=== PATIENT | male | born 1955 | race Caucasian/White ===

== ENCOUNTER 2020-07-18 12:48 | Inpatient (IN) ==
[2020-07-18] MEDS: Gabapentin 100 MG CAPSULE PO SCH ×2 (17:13→20:46)
[2020-07-18] MEDS: Nicotine 14 MG PATCH.TD24 TD SCH (17:30)
[2020-07-18] MEDS: Furosemide 40 MG TABLET PO SCH (17:31)
[2020-07-18] MEDS: Lactulose Oral Soln 20 GM/30 ML UDC PO SCH (20:46)
[2020-07-18] MEDS: Ammonium Lactate 30 APPL/225 GM BOTTLE TP SCH (20:46)
[2020-07-18] MEDS: Loratadine 10 MG TABLET PO SCH (20:46)
[2020-07-18] MEDS: Budesonide/Formoterol 160/4.5 1 PUFF INH IH SCH (21:49)
[2020-07-19] MEDS: Finasteride 5 MG TABLET PO SCH (08:14)
[2020-07-19] MEDS: Gabapentin 100 MG CAPSULE PO SCH ×3 (08:14→21:36)
[2020-07-19] MEDS: Ammonium Lactate 30 APPL/225 GM BOTTLE TP SCH ×2 (08:15→21:39)
[2020-07-19] MEDS: calcitrioL 0.25 MCG CAPSULE PO SCH (08:15)
[2020-07-19] MEDS: Lactulose Oral Soln 20 GM/30 ML UDC PO SCH ×3 (08:16→21:36)
[2020-07-19] MEDS: Furosemide 40 MG TABLET PO SCH ×2 (08:30→16:43)
[2020-07-19] MEDS: Dapagliflozin [Farxiga] 5 MG PO SCH (08:31)
[2020-07-19] MEDS ORDERED: Dextrose Gel 15 GM/37.5 ML TUBE PO PRN ×2 (08:31)
[2020-07-19] MEDS ORDERED: D5% in Water 1,000 ML IVC PRN (08:31)
[2020-07-19] MEDS ORDERED: *HR* Dextrose 50 % in Water (Vial) 50 ML VIAL IVP PRN (08:31)
[2020-07-19 08:36] LABS: Basophils # 0.1 K/mcL (0.0-0.2); Basophils % 0.9 %; Eosinophils # 0.4 K/mcL (0.0-0.6); Eosinophils % 4.6 %; Hemoglobin 10.1 g/dL (12.9-16.9); Immature Granulocytes % 0.3 % (0-4); Lymphocytes # 1.9 K/mcL (0.6-4.6); Lymphocytes % 25.3 %; Mean Corpuscular HGB Conc 31.6 g/dL (31.6-35.5); Mean Corpuscular Hemoglobin 29.3 pg (28.0-33.3); Mean Corpuscular Volume 92.8 fL (83.0-100.0); Mean Platelet Volume 11.7 fL (9.4-12.4); Monocytes # 0.7 K/mcL (0.0-1.3); Monocytes % 9.8 %; Neutrophils # 4.5 K/mcL (1.6-8.9); Red Blood Count 3.45 M/mcL (4.19-5.50); Red Cell Distribution Width 21.5 % (11.5-14.5); Segmented Neutrophils % 59.1 %; White Blood Count 7.6 K/mcL (4.3-11.1)
[2020-07-19 08:37] LABS: Platelet Count 77 K/mcL (140-400)
[2020-07-19 08:43] LABS: BUN/Creatinine Ratio 18 (6-26); Blood Urea Nitrogen 25 mg/dL (8-23); Calcium 8.9 mg/dL (8.6-10.3); Carbon Dioxide 26 mEq/L (23-29); Chloride 102 mEq/L (98-107); Glucose 108 mg/dL (70-105); Osmolality,Calculated 287 (280-300); Potassium 3.7 mEq/L (3.5-5.1); Sodium 136 mEq/L (136-145); eGFR For African Americans > 60 (> 60); eGFR For Non-African Americans 53 (> 60)
[2020-07-19] MEDS ORDERED: Cyanocobalamin (B-12) 1,000 MCG/ML VIAL IM SCH (09:00)
[2020-07-19 09:27] LABS: Platelet Estimate Decreased (Normal)
[2020-07-19] MEDS ORDERED: Tiotropium 10 INH DOSE IH SCH (10:00)
[2020-07-19] MEDS: *HR* Heparin 5,000 UNIT/ML VIAL SQ SCH ×2 (10:34→17:04)
[2020-07-19] MEDS: Nicotine 14 MG PATCH.TD24 TD SCH (10:39)
[2020-07-19] MEDS: Budesonide/Formoterol 160/4.5 1 PUFF INH IH SCH ×2 (10:42→21:30)
[2020-07-19] MEDS: Tiotropium 10 INH DOSE IH SCH (10:54)
[2020-07-19] MEDS: Insulin LISPRO 300 UNITS/3 ML VIAL SUBQ SCH ×2 (11:42→16:43)
[2020-07-19] MEDS: Loratadine 10 MG TABLET PO SCH (21:36)
[2020-07-20] MEDS: *HR* Heparin 5,000 UNIT/ML VIAL SQ SCH ×2 (05:41→16:50)
[2020-07-20] MEDS: Insulin LISPRO 300 UNITS/3 ML VIAL SUBQ SCH ×4 (07:25→22:19)
[2020-07-20] MEDS: Lactulose Oral Soln 20 GM/30 ML UDC PO SCH ×3 (08:45→22:19)
[2020-07-20] MEDS: Dapagliflozin [Farxiga] 5 MG PO SCH (08:46)
[2020-07-20] MEDS: Finasteride 5 MG TABLET PO SCH (08:46)
[2020-07-20] MEDS: Gabapentin 100 MG CAPSULE PO SCH ×3 (08:46→22:19)
[2020-07-20] MEDS: Ammonium Lactate 30 APPL/225 GM BOTTLE TP SCH ×2 (08:46→22:21)
[2020-07-20] MEDS: Furosemide 40 MG TABLET PO SCH ×2 (08:46→16:50)
[2020-07-20] MEDS: Nicotine 14 MG PATCH.TD24 TD SCH (08:46)
[2020-07-20] MEDS: Tiotropium 10 INH DOSE IH SCH (09:03)
[2020-07-20] MEDS: Budesonide/Formoterol 160/4.5 1 PUFF INH IH SCH ×2 (09:04→21:48)
[2020-07-20] MEDS ORDERED: Ergocalciferol (VIT D2) 50,000 UNIT (1.25MG) CAP PO SCH ×2 (14:26→14:45)
[2020-07-20] MEDS: Loratadine 10 MG TABLET PO SCH (22:18)
[2020-07-21] MEDS: *HR* Heparin 5,000 UNIT/ML VIAL SQ SCH ×2 (05:38→16:32)
[2020-07-21] MEDS: Insulin LISPRO 300 UNITS/3 ML VIAL SUBQ SCH ×4 (07:06→22:08)
[2020-07-21] MEDS: Budesonide/Formoterol 160/4.5 1 PUFF INH IH SCH ×2 (08:00→21:29)
[2020-07-21] MEDS: Tiotropium 10 INH DOSE IH SCH (08:01)
[2020-07-21] MEDS: Nicotine 14 MG PATCH.TD24 TD SCH (09:19)
[2020-07-21] MEDS: Lactulose Oral Soln 20 GM/30 ML UDC PO SCH ×3 (09:19→22:09)
[2020-07-21] MEDS: Finasteride 5 MG TABLET PO SCH (09:19)
[2020-07-21] MEDS: *HR* Metformin 500 MG TABLET PO SCH ×2 (09:20→16:33)
[2020-07-21] MEDS: calcitrioL 0.25 MCG CAPSULE PO SCH (09:20)
[2020-07-21] MEDS: Gabapentin 100 MG CAPSULE PO SCH ×3 (09:21→22:08)
[2020-07-21] MEDS: Furosemide 40 MG TABLET PO SCH ×2 (09:21→16:33)
[2020-07-21] MEDS: Ammonium Lactate 30 APPL/225 GM BOTTLE TP SCH ×2 (09:22→22:08)
[2020-07-21] MEDS: Dapagliflozin [Farxiga] 5 MG PO SCH (09:22)
[2020-07-21] MEDS: Loratadine 10 MG TABLET PO SCH (22:08)
[2020-07-22] MEDS: *HR* Heparin 5,000 UNIT/ML VIAL SQ SCH (05:07)
[2020-07-22 05:11] VITALS: BP 111/64
[2020-07-22] MEDS: Insulin LISPRO 300 UNITS/3 ML VIAL SUBQ SCH (07:49)
[2020-07-22] MEDS: Budesonide/Formoterol 160/4.5 1 PUFF INH IH SCH (09:19)
[2020-07-22] MEDS: Tiotropium 10 INH DOSE IH SCH (09:19)
[2020-07-22] MEDS: Furosemide 40 MG TABLET PO SCH (09:34)
[2020-07-22] MEDS: Finasteride 5 MG TABLET PO SCH (09:34)
[2020-07-22] MEDS: Gabapentin 100 MG CAPSULE PO SCH (09:34)
[2020-07-22] MEDS: *HR* Metformin 500 MG TABLET PO SCH (09:34)
[2020-07-22] MEDS: Nicotine 14 MG PATCH.TD24 TD SCH (09:35)
[2020-07-22] MEDS: Lactulose Oral Soln 20 GM/30 ML UDC PO SCH (09:35)
[2020-07-22] MEDS: Ammonium Lactate 30 APPL/225 GM BOTTLE TP SCH (09:36)
[2020-07-22] MEDS: Dapagliflozin [Farxiga] 5 MG PO SCH (09:36)
== END 2020-07-22 12:10 | disposition home health service (06) | DRG 442 ==
LOC: INPPIK 16:20
PROVIDERS: ADMIT Family Medicine; ATTEND Family Medicine

== ENCOUNTER 2020-10-29 10:48 | Inpatient (IN) ==
[2020-10-29] MEDS ORDERED: Gabapentin 100 MG CAPSULE PO SCH (15:00)
[2020-10-29] MEDS: *HR* Metformin 500 MG TABLET PO SCH (19:03)
[2020-10-29] MEDS: Lactulose Oral Soln 20 GM/30 ML UDC PO SCH (21:10)
[2020-10-29] MEDS: Gabapentin 100 MG CAPSULE PO SCH (21:10)
[2020-10-29] MEDS: Loratadine 10 MG TABLET PO SCH (21:11)
[2020-10-29] MEDS: Ammonium Lactate 30 APPL/225 GM BOTTLE TP SCH (21:12)
[2020-10-29] MEDS: Budesonide/Formoterol 160/4.5 1 PUFF INH IH SCH (21:43)
[2020-10-30 07:31] LABS: Basophils % 0.2 %; Eosinophils % 0.4 %; Hematocrit 25.6 % (37.5-50.1); Hemoglobin 7.9 g/dL (12.9-16.9); Immature Granulocytes % 0.6 % (0-4); Lymphocytes # 1.5 K/mcL (0.6-4.6); Lymphocytes % 14.2 %; Mean Corpuscular HGB Conc 30.9 g/dL (31.6-35.5); Mean Corpuscular Hemoglobin 30.3 pg (28.0-33.3); Mean Corpuscular Volume 98.1 fL (83.0-100.0); Mean Platelet Volume 13.1 fL (9.4-12.4); Monocytes # 0.9 K/mcL (0.0-1.3); Monocytes % 8.2 %; Neutrophils # 8.1 K/mcL (1.6-8.9); Red Blood Count 2.61 M/mcL (4.19-5.50); Red Cell Distribution Width 17.8 % (11.5-14.5); Segmented Neutrophils % 76.4 %; White Blood Count 10.6 K/mcL (4.3-11.1)
[2020-10-30 07:44] LABS: Platelet Count 56 K/mcL (140-400)
[2020-10-30 07:46] LABS: Calcium 9.4 mg/dL (8.6-10.3); Potassium 4.3 mEq/L (3.5-5.1)
[2020-10-30] MEDS: Azithromycin 250 MG TABLET PO SCH (08:23)
[2020-10-30] MEDS: *HR* Metformin 500 MG TABLET PO SCH (08:23)
[2020-10-30] MEDS: Lactulose Oral Soln 20 GM/30 ML UDC PO SCH ×3 (08:23→20:31)
[2020-10-30] MEDS: Finasteride 5 MG TABLET PO SCH (08:24)
[2020-10-30] MEDS: Multivit/Ca/Min/Fe/FA 1 TAB TABLET PO SCH (08:24)
[2020-10-30] MEDS: Spironolactone 25 MG TABLET PO SCH (08:24)
[2020-10-30] MEDS: NIFEdipine XL (24 HR) 30 MG TAB.ER.24 PO SCH (08:25)
[2020-10-30] MEDS: Furosemide 40 MG TABLET PO SCH (08:25)
[2020-10-30] MEDS: Gabapentin 100 MG CAPSULE PO SCH ×3 (08:25→20:31)
[2020-10-30] MEDS: Ammonium Lactate 30 APPL/225 GM BOTTLE TP SCH ×2 (08:26→20:32)
[2020-10-30] MEDS: Calcifediol [Rayaldee] 30 MCG Cap.Sa.24h PO SCH (08:27)
[2020-10-30] MEDS: FLUOROURACIL TP SCH (08:27)
[2020-10-30] MEDS: Nicotine 14 MG PATCH.TD24 TD SCH (08:27)
[2020-10-30] MEDS ORDERED: predniSONE 20 MG TABLET PO SCH (09:00)
[2020-10-30] MEDS ORDERED: Cyanocobalamin (B-12) 1,000 MCG/ML VIAL SQ SCH (09:00)
[2020-10-30] MEDS ORDERED: NON-FORMULARY MEDICATION 1 EACH EACH (Fluticasone/Umeclidin/Vilanter [Trelegy Ellipta 100- IH SCH (09:00)
[2020-10-30] MEDS: Tiotropium 10 INH DOSE IH SCH (10:35)
[2020-10-30] MEDS: Budesonide/Formoterol 160/4.5 1 PUFF INH IH SCH ×2 (10:36→21:31)
[2020-10-30] MEDS ORDERED: *HR* Dextrose 50 % in Water (Vial) 50 ML VIAL IVP PRN (10:39)
[2020-10-30] MEDS ORDERED: D5% in Water 1,000 ML IVC PRN (10:39)
[2020-10-30] MEDS ORDERED: Dextrose Gel 15 GM/37.5 ML TUBE PO PRN ×2 (10:39)
[2020-10-30] MEDS ORDERED: Ipratropium/Albuterol Neb 3 ML IH PRN (10:43)
[2020-10-30 12:40] LABS: INR 1.5; Prothrombin Time 17.4 Seconds (9.4-12.1)
[2020-10-30] MEDS: Insulin LISPRO 300 UNITS/3 ML VIAL SUBQ SCH ×3 (16:32→20:31)
[2020-10-30] MEDS: Loratadine 10 MG TABLET PO SCH (20:31)
[2020-10-31 06:43] LABS: Basophils % 0.2 %; Eosinophils % 0.4 %; Hematocrit 24.9 % (37.5-50.1); Hemoglobin 7.9 g/dL (12.9-16.9); Immature Granulocytes % 0.4 % (0-4); Lymphocytes # 1.4 K/mcL (0.6-4.6); Lymphocytes % 16.1 %; Mean Corpuscular HGB Conc 31.7 g/dL (31.6-35.5); Mean Corpuscular Hemoglobin 31.2 pg (28.0-33.3); Mean Corpuscular Volume 98.4 fL (83.0-100.0); Mean Platelet Volume 11.8 fL (9.4-12.4); Monocytes # 0.8 K/mcL (0.0-1.3); Monocytes % 8.5 %; Neutrophils # 6.6 K/mcL (1.6-8.9); Red Blood Count 2.53 M/mcL (4.19-5.50); Red Cell Distribution Width 18.2 % (11.5-14.5); Segmented Neutrophils % 74.4 %; White Blood Count 8.9 K/mcL (4.3-11.1)
[2020-10-31 06:45] LABS: Platelet Count 50 K/mcL (140-400)
[2020-10-31 07:10] LABS: INR 1.5; Prothrombin Time 17.6 Seconds (9.4-12.1)
[2020-10-31 07:22] LABS: Calcium 9.2 mg/dL (8.6-10.3); Potassium 4.1 mEq/L (3.5-5.1)
[2020-10-31] MEDS: Multivit/Ca/Min/Fe/FA 1 TAB TABLET PO SCH (08:32)
[2020-10-31] MEDS: Azithromycin 250 MG TABLET PO SCH (08:32)
[2020-10-31] MEDS: Lactulose Oral Soln 20 GM/30 ML UDC PO SCH ×3 (08:32→20:15)
[2020-10-31] MEDS: Insulin LISPRO 300 UNITS/3 ML VIAL SUBQ SCH ×4 (08:32→20:42)
[2020-10-31] MEDS: Furosemide 40 MG TABLET PO SCH (08:33)
[2020-10-31] MEDS: Finasteride 5 MG TABLET PO SCH (08:33)
[2020-10-31] MEDS: Gabapentin 100 MG CAPSULE PO SCH ×3 (08:33→20:15)
[2020-10-31] MEDS: NIFEdipine XL (24 HR) 30 MG TAB.ER.24 PO SCH (08:33)
[2020-10-31] MEDS: Nicotine 14 MG PATCH.TD24 TD SCH (08:34)
[2020-10-31] MEDS: Spironolactone 25 MG TABLET PO SCH (08:34)
[2020-10-31] MEDS: Calcifediol [Rayaldee] 30 MCG Cap.Sa.24h PO SCH (08:35)
[2020-10-31] MEDS: Ammonium Lactate 30 APPL/225 GM BOTTLE TP SCH ×2 (08:35→20:18)
[2020-10-31] MEDS: FLUOROURACIL TP SCH (08:36)
[2020-10-31] MEDS: Tiotropium 10 INH DOSE IH SCH (09:40)
[2020-10-31] MEDS: Budesonide/Formoterol 160/4.5 1 PUFF INH IH SCH ×2 (09:40→21:39)
[2020-10-31] MEDS: Ipratropium/Albuterol Neb 3 ML IH SCH ×2 (15:08→21:38)
[2020-10-31] MEDS: Loratadine 10 MG TABLET PO SCH (20:15)
[2020-11-01] MEDS: Ipratropium/Albuterol Neb 3 ML IH SCH ×4 (04:00→21:03)
[2020-11-01] MEDS: Insulin LISPRO 300 UNITS/3 ML VIAL SUBQ SCH ×4 (08:01→21:49)
[2020-11-01] MEDS: Lactulose Oral Soln 20 GM/30 ML UDC PO SCH ×3 (08:09→20:16)
[2020-11-01] MEDS: NIFEdipine XL (24 HR) 30 MG TAB.ER.24 PO SCH (08:10)
[2020-11-01] MEDS: Azithromycin 250 MG TABLET PO SCH (08:10)
[2020-11-01] MEDS: Finasteride 5 MG TABLET PO SCH (08:10)
[2020-11-01] MEDS: Gabapentin 100 MG CAPSULE PO SCH ×3 (08:10→20:17)
[2020-11-01] MEDS: Multivit/Ca/Min/Fe/FA 1 TAB TABLET PO SCH (08:11)
[2020-11-01] MEDS: Nicotine 14 MG PATCH.TD24 TD SCH (08:11)
[2020-11-01] MEDS: Furosemide 40 MG TABLET PO SCH (08:11)
[2020-11-01] MEDS: Ammonium Lactate 30 APPL/225 GM BOTTLE TP SCH ×2 (08:17→20:18)
[2020-11-01] MEDS: FLUOROURACIL TP SCH (08:18)
[2020-11-01] MEDS: Budesonide/Formoterol 160/4.5 1 PUFF INH IH SCH ×2 (09:59→21:03)
[2020-11-01] MEDS: Tiotropium 10 INH DOSE IH SCH (10:00)
[2020-11-01 13:27] LABS: Calcium 9.6 mg/dL (8.6-10.3); Potassium 4.2 mEq/L (3.5-5.1)
[2020-11-01] MEDS: Loratadine 10 MG TABLET PO SCH (20:16)
[2020-11-01] MEDS: CALCIFEDIOL 30 MCG PO SCH (21:49)
[2020-11-02] MEDS: Ipratropium/Albuterol Neb 3 ML IH SCH ×4 (04:23→21:58)
[2020-11-02] MEDS: Insulin LISPRO 300 UNITS/3 ML VIAL SUBQ SCH ×4 (07:51→21:29)
[2020-11-02 08:30] LABS: Basophils # 0.1 K/mcL (0.0-0.2); Basophils % 0.7 %; Eosinophils # 0.4 K/mcL (0.0-0.6); Eosinophils % 5.7 %; Hematocrit 26.6 % (37.5-50.1); Hemoglobin 8.3 g/dL (12.9-16.9); Immature Granulocytes % 0.4 % (0-4); Lymphocytes # 1.5 K/mcL (0.6-4.6); Lymphocytes % 20.2 %; Mean Corpuscular HGB Conc 31.2 g/dL (31.6-35.5); Mean Corpuscular Hemoglobin 31.1 pg (28.0-33.3); Mean Corpuscular Volume 99.6 fL (83.0-100.0); Mean Platelet Volume 11.4 fL (9.4-12.4); Monocytes # 0.7 K/mcL (0.0-1.3); Monocytes % 8.8 %; Neutrophils # 4.9 K/mcL (1.6-8.9); Red Blood Count 2.67 M/mcL (4.19-5.50); Red Cell Distribution Width 18.7 % (11.5-14.5); Segmented Neutrophils % 64.2 %; White Blood Count 7.6 K/mcL (4.3-11.1)
[2020-11-02 08:32] LABS: Platelet Count 49 K/mcL (140-400)
[2020-11-02] MEDS: Lactulose Oral Soln 20 GM/30 ML UDC PO SCH ×3 (08:46→21:34)
[2020-11-02] MEDS: Multivit/Ca/Min/Fe/FA 1 TAB TABLET PO SCH (08:46)
[2020-11-02] MEDS: Azithromycin 250 MG TABLET PO SCH (08:46)
[2020-11-02] MEDS: Gabapentin 100 MG CAPSULE PO SCH ×3 (08:46→21:35)
[2020-11-02] MEDS: Furosemide 40 MG TABLET PO SCH (08:47)
[2020-11-02] MEDS: NIFEdipine XL (24 HR) 30 MG TAB.ER.24 PO SCH (08:47)
[2020-11-02] MEDS: Finasteride 5 MG TABLET PO SCH (08:47)
[2020-11-02] MEDS: Dulaglutide [Trulicity] 1.5 MG/0.5 ML Pen.Injctr SQ SCH (08:48)
[2020-11-02] MEDS: Nicotine 14 MG PATCH.TD24 TD SCH (08:48)
[2020-11-02] MEDS: Ammonium Lactate 30 APPL/225 GM BOTTLE TP SCH ×2 (08:48→21:35)
[2020-11-02 08:52] LABS: Calcium 9.4 mg/dL (8.6-10.3); Potassium 3.9 mEq/L (3.5-5.1)
[2020-11-02 09:36] LABS: Platelet Estimate Marked Decrease (Normal)
[2020-11-02] MEDS: Budesonide/Formoterol 160/4.5 1 PUFF INH IH SCH ×2 (11:22→21:58)
[2020-11-02] MEDS: Tiotropium 10 INH DOSE IH SCH (11:22)
[2020-11-02] MEDS: Loratadine 10 MG TABLET PO SCH (21:35)
[2020-11-02] MEDS: CALCIFEDIOL 30 MCG PO SCH (21:36)
[2020-11-03] MEDS: Ipratropium/Albuterol Neb 3 ML IH SCH ×2 (05:29→10:19)
[2020-11-03] MEDS: Insulin LISPRO 300 UNITS/3 ML VIAL SUBQ SCH ×4 (07:59→21:05)
[2020-11-03] MEDS: NIFEdipine XL (24 HR) 30 MG TAB.ER.24 PO SCH (08:56)
[2020-11-03] MEDS: Finasteride 5 MG TABLET PO SCH (08:56)
[2020-11-03] MEDS: Gabapentin 100 MG CAPSULE PO SCH ×3 (08:56→21:45)
[2020-11-03] MEDS: Furosemide 40 MG TABLET PO SCH (08:56)
[2020-11-03] MEDS: Multivit/Ca/Min/Fe/FA 1 TAB TABLET PO SCH (08:56)
[2020-11-03] MEDS: Azithromycin 250 MG TABLET PO SCH (08:56)
[2020-11-03] MEDS: Lactulose Oral Soln 20 GM/30 ML UDC PO SCH ×3 (08:56→21:48)
[2020-11-03] MEDS: Nicotine 14 MG PATCH.TD24 TD SCH (08:57)
[2020-11-03] MEDS: Ammonium Lactate 30 APPL/225 GM BOTTLE TP SCH ×2 (08:57→22:06)
[2020-11-03] MEDS: Tiotropium 10 INH DOSE IH SCH (10:21)
[2020-11-03] MEDS: Budesonide/Formoterol 160/4.5 1 PUFF INH IH SCH ×2 (10:24→21:16)
[2020-11-03 10:32] LABS: Calcium 9.4 mg/dL (8.6-10.3); Potassium 4.2 mEq/L (3.5-5.1)
[2020-11-03] MEDS ORDERED: Ipratropium/Albuterol Neb 3 ML IH PRN (11:22)
[2020-11-03] MEDS: Loratadine 10 MG TABLET PO SCH (21:45)
[2020-11-03] MEDS: CALCIFEDIOL 30 MCG PO SCH (21:47)
[2020-11-04] MEDS: Tiotropium 10 INH DOSE IH SCH (07:47)
[2020-11-04] MEDS: Budesonide/Formoterol 160/4.5 1 PUFF INH IH SCH ×2 (07:47→20:20)
[2020-11-04] MEDS: Insulin LISPRO 300 UNITS/3 ML VIAL SUBQ SCH ×4 (08:24→21:11)
[2020-11-04] MEDS: Azithromycin 250 MG TABLET PO SCH (08:30)
[2020-11-04] MEDS: Spironolactone 25 MG TABLET PO SCH (08:30)
[2020-11-04] MEDS: Multivit/Ca/Min/Fe/FA 1 TAB TABLET PO SCH (08:30)
[2020-11-04] MEDS: Gabapentin 100 MG CAPSULE PO SCH ×3 (08:31→21:10)
[2020-11-04] MEDS: Nicotine 14 MG PATCH.TD24 TD SCH (08:31)
[2020-11-04] MEDS: Lactulose Oral Soln 20 GM/30 ML UDC PO SCH ×3 (08:31→21:10)
[2020-11-04] MEDS: NIFEdipine XL (24 HR) 30 MG TAB.ER.24 PO SCH (08:31)
[2020-11-04] MEDS: Finasteride 5 MG TABLET PO SCH (08:31)
[2020-11-04] MEDS: Furosemide 40 MG TABLET PO SCH (08:31)
[2020-11-04] MEDS: Ammonium Lactate 30 APPL/225 GM BOTTLE TP SCH ×2 (08:35→21:11)
[2020-11-04] MEDS: Loratadine 10 MG TABLET PO SCH (21:10)
[2020-11-04] MEDS: CALCIFEDIOL 30 MCG PO SCH (22:59)
[2020-11-05] MEDS: Budesonide/Formoterol 160/4.5 1 PUFF INH IH SCH ×2 (07:36→21:41)
[2020-11-05] MEDS: Tiotropium 10 INH DOSE IH SCH (07:36)
[2020-11-05] MEDS: Azithromycin 250 MG TABLET PO SCH (08:28)
[2020-11-05] MEDS: Finasteride 5 MG TABLET PO SCH (08:28)
[2020-11-05] MEDS: Lactulose Oral Soln 20 GM/30 ML UDC PO SCH ×3 (08:28→20:08)
[2020-11-05] MEDS: NIFEdipine XL (24 HR) 30 MG TAB.ER.24 PO SCH (08:28)
[2020-11-05] MEDS: Nicotine 14 MG PATCH.TD24 TD SCH (08:29)
[2020-11-05] MEDS: Furosemide 40 MG TABLET PO SCH (08:29)
[2020-11-05] MEDS: Insulin LISPRO 300 UNITS/3 ML VIAL SUBQ SCH ×4 (08:30→19:32)
[2020-11-05] MEDS: Gabapentin 100 MG CAPSULE PO SCH ×3 (08:30→20:08)
[2020-11-05] MEDS: Multivit/Ca/Min/Fe/FA 1 TAB TABLET PO SCH (08:30)
[2020-11-05] MEDS: Spironolactone 25 MG TABLET PO SCH (08:30)
[2020-11-05] MEDS: Ammonium Lactate 30 APPL/225 GM BOTTLE TP SCH ×2 (11:59→20:07)
[2020-11-05] MEDS: CALCIFEDIOL 30 MCG PO SCH (20:08)
[2020-11-05] MEDS: Loratadine 10 MG TABLET PO SCH (20:08)
[2020-11-06] MEDS: Budesonide/Formoterol 160/4.5 1 PUFF INH IH SCH ×2 (07:51→21:18)
[2020-11-06] MEDS: Tiotropium 10 INH DOSE IH SCH (07:51)
[2020-11-06 08:01] LABS: Basophils # 0.1 K/mcL (0.0-0.2); Basophils % 0.8 %; Eosinophils # 0.3 K/mcL (0.0-0.6); Hematocrit 27.2 % (37.5-50.1); Hemoglobin 8.2 g/dL (12.9-16.9); Immature Granulocytes % 0.3 % (0-4); Lymphocytes # 1.6 K/mcL (0.6-4.6); Lymphocytes % 24.2 %; Mean Corpuscular HGB Conc 30.1 g/dL (31.6-35.5); Mean Corpuscular Hemoglobin 30.7 pg (28.0-33.3); Mean Corpuscular Volume 101.9 fL (83.0-100.0); Mean Platelet Volume 12.8 fL (9.4-12.4); Monocytes # 0.8 K/mcL (0.0-1.3); Monocytes % 11.7 %; Neutrophils # 3.9 K/mcL (1.6-8.9); Red Blood Count 2.67 M/mcL (4.19-5.50); Red Cell Distribution Width 18.6 % (11.5-14.5); White Blood Count 6.7 K/mcL (4.3-11.1)
[2020-11-06] MEDS: Insulin LISPRO 300 UNITS/3 ML VIAL SUBQ SCH ×4 (08:07→20:33)
[2020-11-06] MEDS: Azithromycin 250 MG TABLET PO SCH (08:07)
[2020-11-06] MEDS: Lactulose Oral Soln 20 GM/30 ML UDC PO SCH ×3 (08:07→20:33)
[2020-11-06] MEDS: Gabapentin 100 MG CAPSULE PO SCH ×3 (08:07→20:33)
[2020-11-06] MEDS: Finasteride 5 MG TABLET PO SCH (08:08)
[2020-11-06] MEDS: Spironolactone 25 MG TABLET PO SCH (08:08)
[2020-11-06] MEDS: Multivit/Ca/Min/Fe/FA 1 TAB TABLET PO SCH (08:08)
[2020-11-06] MEDS: Nicotine 14 MG PATCH.TD24 TD SCH (08:08)
[2020-11-06] MEDS: Furosemide 40 MG TABLET PO SCH (08:08)
[2020-11-06] MEDS: NIFEdipine XL (24 HR) 30 MG TAB.ER.24 PO SCH (08:08)
[2020-11-06] MEDS: Ammonium Lactate 30 APPL/225 GM BOTTLE TP SCH ×2 (08:09→20:32)
[2020-11-06 08:12] LABS: Calcium 9.2 mg/dL (8.6-10.3); Potassium 4.2 mEq/L (3.5-5.1)
[2020-11-06 08:13] LABS: Platelet Count 51 K/mcL (140-400)
[2020-11-06] MEDS: Loratadine 10 MG TABLET PO SCH (20:33)
[2020-11-06] MEDS: CALCIFEDIOL 30 MCG PO SCH (20:36)
[2020-11-07] MEDS: NIFEdipine XL (24 HR) 30 MG TAB.ER.24 PO SCH (08:22)
[2020-11-07] MEDS: Multivit/Ca/Min/Fe/FA 1 TAB TABLET PO SCH (08:23)
[2020-11-07] MEDS: Furosemide 40 MG TABLET PO SCH (08:23)
[2020-11-07] MEDS: Azithromycin 250 MG TABLET PO SCH (08:23)
[2020-11-07] MEDS: Spironolactone 25 MG TABLET PO SCH (08:23)
[2020-11-07] MEDS: Finasteride 5 MG TABLET PO SCH (08:23)
[2020-11-07] MEDS: Gabapentin 100 MG CAPSULE PO SCH ×3 (08:23→20:53)
[2020-11-07] MEDS: Lactulose Oral Soln 20 GM/30 ML UDC PO SCH ×3 (08:25→20:53)
[2020-11-07] MEDS: Nicotine 14 MG PATCH.TD24 TD SCH (08:25)
[2020-11-07] MEDS: Insulin LISPRO 300 UNITS/3 ML VIAL SUBQ SCH ×4 (08:32→20:50)
[2020-11-07] MEDS: Ammonium Lactate 30 APPL/225 GM BOTTLE TP SCH ×2 (08:33→20:56)
[2020-11-07] MEDS: Budesonide/Formoterol 160/4.5 1 PUFF INH IH SCH ×2 (11:02→21:37)
[2020-11-07] MEDS: Tiotropium 10 INH DOSE IH SCH (11:03)
[2020-11-07] MEDS: CALCIFEDIOL 30 MCG PO SCH (20:51)
[2020-11-07] MEDS: Loratadine 10 MG TABLET PO SCH (20:53)
[2020-11-07] MEDS: Ipratropium/Albuterol Neb 3 ML IH PRN (21:38)
[2020-11-08] MEDS: Insulin LISPRO 300 UNITS/3 ML VIAL SUBQ SCH ×4 (08:39→21:37)
[2020-11-08 08:59] LABS: Basophils % 0.7 %; Eosinophils # 0.3 K/mcL (0.0-0.6); Eosinophils % 4.7 %; Hematocrit 25.9 % (37.5-50.1); Hemoglobin 7.9 g/dL (12.9-16.9); Immature Granulocytes % 0.2 % (0-4); Lymphocytes # 1.3 K/mcL (0.6-4.6); Lymphocytes % 21.9 %; Mean Corpuscular HGB Conc 30.5 g/dL (31.6-35.5); Mean Corpuscular Hemoglobin 30.6 pg (28.0-33.3); Mean Corpuscular Volume 100.4 fL (83.0-100.0); Mean Platelet Volume 12.5 fL (9.4-12.4); Monocytes # 0.7 K/mcL (0.0-1.3); Monocytes % 11.6 %; Neutrophils # 3.5 K/mcL (1.6-8.9); Red Blood Count 2.58 M/mcL (4.19-5.50); Red Cell Distribution Width 18.6 % (11.5-14.5); Segmented Neutrophils % 60.9 %; White Blood Count 5.7 K/mcL (4.3-11.1)
[2020-11-08 09:01] LABS: Platelet Count 49 K/mcL (140-400)
[2020-11-08 09:11] LABS: Albumin 3.5 g/dL (3.5-5.7); Albumin/Globulin Ratio 1.1 (1.1-2.2); Calcium 8.9 mg/dL (8.6-10.3); Globulin 3.3 g/dL (2.4-3.5); Potassium 4.3 mEq/L (3.5-5.1); Total Protein 6.8 g/dL (6.4-8.9)
[2020-11-08] MEDS: Azithromycin 250 MG TABLET PO SCH (09:22)
[2020-11-08] MEDS: Spironolactone 25 MG TABLET PO SCH (09:24)
[2020-11-08] MEDS: Multivit/Ca/Min/Fe/FA 1 TAB TABLET PO SCH (09:24)
[2020-11-08] MEDS: Finasteride 5 MG TABLET PO SCH (09:25)
[2020-11-08] MEDS: Furosemide 40 MG TABLET PO SCH (09:25)
[2020-11-08] MEDS: Gabapentin 100 MG CAPSULE PO SCH ×3 (09:25→21:36)
[2020-11-08] MEDS: NIFEdipine XL (24 HR) 30 MG TAB.ER.24 PO SCH (09:25)
[2020-11-08] MEDS: Lactulose Oral Soln 20 GM/30 ML UDC PO SCH ×3 (09:26→21:36)
[2020-11-08] MEDS: Nicotine 14 MG PATCH.TD24 TD SCH (09:30)
[2020-11-08] MEDS: Ammonium Lactate 30 APPL/225 GM BOTTLE TP SCH ×2 (09:39→21:35)
[2020-11-08] MEDS: Tiotropium 10 INH DOSE IH SCH (09:44)
[2020-11-08] MEDS: Budesonide/Formoterol 160/4.5 1 PUFF INH IH SCH ×2 (09:44→21:11)
[2020-11-08] MEDS: Ipratropium/Albuterol Neb 3 ML IH PRN ×2 (09:44→21:12)
[2020-11-08] MEDS: Loratadine 10 MG TABLET PO SCH (21:36)
[2020-11-08] MEDS: CALCIFEDIOL 30 MCG PO SCH (21:37)
[2020-11-09] MEDS: Insulin LISPRO 300 UNITS/3 ML VIAL SUBQ SCH ×4 (07:27→20:42)
[2020-11-09] MEDS: Tiotropium 10 INH DOSE IH SCH (08:53)
[2020-11-09] MEDS: Budesonide/Formoterol 160/4.5 1 PUFF INH IH SCH ×2 (08:53→21:25)
[2020-11-09] MEDS: Lactulose Oral Soln 20 GM/30 ML UDC PO SCH ×3 (08:58→20:30)
[2020-11-09] MEDS: Nicotine 14 MG PATCH.TD24 TD SCH (08:58)
[2020-11-09] MEDS: NIFEdipine XL (24 HR) 30 MG TAB.ER.24 PO SCH (08:59)
[2020-11-09] MEDS: Finasteride 5 MG TABLET PO SCH (08:59)
[2020-11-09] MEDS: Gabapentin 100 MG CAPSULE PO SCH ×3 (08:59→20:30)
[2020-11-09] MEDS: Multivit/Ca/Min/Fe/FA 1 TAB TABLET PO SCH (09:00)
[2020-11-09] MEDS: Spironolactone 25 MG TABLET PO SCH (09:00)
[2020-11-09] MEDS: Azithromycin 250 MG TABLET PO SCH (09:00)
[2020-11-09] MEDS: Furosemide 40 MG TABLET PO SCH (09:00)
[2020-11-09] MEDS: Dulaglutide [Trulicity] 1.5 MG/0.5 ML Pen.Injctr SQ SCH (09:01)
[2020-11-09] MEDS: Ammonium Lactate 30 APPL/225 GM BOTTLE TP SCH ×2 (11:47→20:29)
[2020-11-09] MEDS: Loratadine 10 MG TABLET PO SCH (20:30)
[2020-11-09] MEDS: CALCIFEDIOL 30 MCG PO SCH (20:31)
[2020-11-09] MEDS: Ipratropium/Albuterol Neb 3 ML IH PRN (21:25)
[2020-11-10] MEDS: Insulin LISPRO 300 UNITS/3 ML VIAL SUBQ SCH ×4 (07:16→20:36)
[2020-11-10] MEDS: Spironolactone 25 MG TABLET PO SCH (09:13)
[2020-11-10] MEDS: Azithromycin 250 MG TABLET PO SCH (09:14)
[2020-11-10] MEDS: Multivit/Ca/Min/Fe/FA 1 TAB TABLET PO SCH (09:15)
[2020-11-10] MEDS: Finasteride 5 MG TABLET PO SCH (09:15)
[2020-11-10] MEDS: Furosemide 40 MG TABLET PO SCH (09:15)
[2020-11-10] MEDS: Gabapentin 100 MG CAPSULE PO SCH ×3 (09:15→20:31)
[2020-11-10] MEDS: Lactulose Oral Soln 20 GM/30 ML UDC PO SCH ×3 (09:16→20:28)
[2020-11-10] MEDS: Nicotine 14 MG PATCH.TD24 TD SCH (09:16)
[2020-11-10] MEDS: NIFEdipine XL (24 HR) 30 MG TAB.ER.24 PO SCH (09:16)
[2020-11-10] MEDS: Ipratropium/Albuterol Neb 3 ML IH PRN ×2 (09:29→21:48)
[2020-11-10] MEDS: Budesonide/Formoterol 160/4.5 1 PUFF INH IH SCH ×2 (09:30→21:48)
[2020-11-10] MEDS: Tiotropium 10 INH DOSE IH SCH (09:31)
[2020-11-10] MEDS: Ammonium Lactate 30 APPL/225 GM BOTTLE TP SCH ×2 (15:40→20:44)
[2020-11-10] MEDS: Loratadine 10 MG TABLET PO SCH (20:31)
[2020-11-10] MEDS: CALCIFEDIOL 30 MCG PO SCH (20:31)
[2020-11-11] MEDS: Lactulose Oral Soln 20 GM/30 ML UDC PO SCH ×3 (08:26→21:15)
[2020-11-11] MEDS: Azithromycin 250 MG TABLET PO SCH (08:26)
[2020-11-11] MEDS: Finasteride 5 MG TABLET PO SCH (08:27)
[2020-11-11] MEDS: Multivit/Ca/Min/Fe/FA 1 TAB TABLET PO SCH (08:27)
[2020-11-11] MEDS: Furosemide 40 MG TABLET PO SCH (08:27)
[2020-11-11] MEDS: Gabapentin 100 MG CAPSULE PO SCH ×3 (08:27→21:15)
[2020-11-11] MEDS: NIFEdipine XL (24 HR) 30 MG TAB.ER.24 PO SCH (08:27)
[2020-11-11] MEDS: Spironolactone 25 MG TABLET PO SCH (08:27)
[2020-11-11] MEDS: Ammonium Lactate 30 APPL/225 GM BOTTLE TP SCH ×2 (08:28→21:16)
[2020-11-11] MEDS: Nicotine 14 MG PATCH.TD24 TD SCH (08:28)
[2020-11-11] MEDS: Insulin LISPRO 300 UNITS/3 ML VIAL SUBQ SCH ×4 (08:28→21:16)
[2020-11-11] MEDS: Budesonide/Formoterol 160/4.5 1 PUFF INH IH SCH ×2 (10:23→21:40)
[2020-11-11] MEDS: Tiotropium 10 INH DOSE IH SCH (10:24)
[2020-11-11] MEDS: Loratadine 10 MG TABLET PO SCH (21:15)
[2020-11-11] MEDS: CALCIFEDIOL 30 MCG PO SCH (21:16)
[2020-11-11] MEDS: Ipratropium/Albuterol Neb 3 ML IH PRN (21:40)
[2020-11-12] MEDS: NIFEdipine XL (24 HR) 30 MG TAB.ER.24 PO SCH (07:52)
[2020-11-12] MEDS: Finasteride 5 MG TABLET PO SCH (07:52)
[2020-11-12] MEDS: Furosemide 40 MG TABLET PO SCH (07:52)
[2020-11-12] MEDS: Gabapentin 100 MG CAPSULE PO SCH ×3 (07:52→21:14)
[2020-11-12] MEDS: Multivit/Ca/Min/Fe/FA 1 TAB TABLET PO SCH (07:52)
[2020-11-12] MEDS: Azithromycin 250 MG TABLET PO SCH (07:52)
[2020-11-12] MEDS: Spironolactone 25 MG TABLET PO SCH (07:53)
[2020-11-12] MEDS: Insulin LISPRO 300 UNITS/3 ML VIAL SUBQ SCH ×4 (07:53→21:06)
[2020-11-12] MEDS: Nicotine 14 MG PATCH.TD24 TD SCH (07:53)
[2020-11-12] MEDS: Ammonium Lactate 30 APPL/225 GM BOTTLE TP SCH ×2 (07:54→21:13)
[2020-11-12] MEDS: Lactulose Oral Soln 20 GM/30 ML UDC PO SCH ×3 (07:54→21:13)
[2020-11-12] MEDS: Budesonide/Formoterol 160/4.5 1 PUFF INH IH SCH ×2 (09:43→21:52)
[2020-11-12] MEDS: Tiotropium 10 INH DOSE IH SCH (09:44)
[2020-11-12] MEDS: CALCIFEDIOL 30 MCG PO SCH (21:06)
[2020-11-12] MEDS: Loratadine 10 MG TABLET PO SCH (21:14)
[2020-11-12] MEDS: Ipratropium/Albuterol Neb 3 ML IH PRN (21:52)
[2020-11-13] MEDS: Ipratropium/Albuterol Neb 3 ML IH PRN ×2 (06:27→21:40)
[2020-11-13] MEDS: Insulin LISPRO 300 UNITS/3 ML VIAL SUBQ SCH ×4 (08:40→22:07)
[2020-11-13] MEDS: Furosemide 40 MG TABLET PO SCH (08:45)
[2020-11-13] MEDS: Nicotine 14 MG PATCH.TD24 TD SCH (08:45)
[2020-11-13] MEDS: NIFEdipine XL (24 HR) 30 MG TAB.ER.24 PO SCH (08:45)
[2020-11-13] MEDS: Lactulose Oral Soln 20 GM/30 ML UDC PO SCH ×3 (08:45→20:21)
[2020-11-13] MEDS: Azithromycin 250 MG TABLET PO SCH (08:45)
[2020-11-13] MEDS: Spironolactone 25 MG TABLET PO SCH (08:46)
[2020-11-13] MEDS: Finasteride 5 MG TABLET PO SCH (08:46)
[2020-11-13] MEDS: Multivit/Ca/Min/Fe/FA 1 TAB TABLET PO SCH (08:46)
[2020-11-13] MEDS: Gabapentin 100 MG CAPSULE PO SCH ×3 (08:46→20:08)
[2020-11-13] MEDS: Ammonium Lactate 30 APPL/225 GM BOTTLE TP SCH ×2 (08:50→20:09)
[2020-11-13] MEDS ORDERED: Methyl Salicylate/Menthol 57 APPL/57 GM TUBE TP PRN (10:06)
[2020-11-13] MEDS: Tiotropium 10 INH DOSE IH SCH (11:15)
[2020-11-13] MEDS: Budesonide/Formoterol 160/4.5 1 PUFF INH IH SCH ×2 (11:16→21:43)
[2020-11-13 15:28] LABS: Basophils % 0.7 %; Eosinophils # 0.1 K/mcL (0.0-0.6); Eosinophils % 3.1 %; Hematocrit 25.2 % (37.5-50.1); Hemoglobin 7.7 g/dL (12.9-16.9); Immature Granulocytes % 0.4 % (0-4); Lymphocytes % 21.9 %; Mean Corpuscular HGB Conc 30.6 g/dL (31.6-35.5); Mean Corpuscular Hemoglobin 30.8 pg (28.0-33.3); Mean Corpuscular Volume 100.8 fL (83.0-100.0); Mean Platelet Volume 13.1 fL (9.4-12.4); Monocytes # 0.4 K/mcL (0.0-1.3); Monocytes % 8.3 %; Neutrophils # 2.9 K/mcL (1.6-8.9); Red Cell Distribution Width 19.4 % (11.5-14.5); Segmented Neutrophils % 65.6 %; White Blood Count 4.5 K/mcL (4.3-11.1)
[2020-11-13 15:30] LABS: Platelet Count 54 K/mcL (140-400)
[2020-11-13 15:43] LABS: Albumin 3.4 g/dL (3.5-5.7); Bilirubin,Total 1.3 mg/dL (0.3-1.0); Calcium 9.1 mg/dL (8.6-10.3); Globulin 3.4 g/dL (2.4-3.5); Potassium 4.9 mEq/L (3.5-5.1); Total Protein 6.8 g/dL (6.4-8.9)
[2020-11-13] MEDS ORDERED: Lactulose Oral Soln 20 GM/30 ML UDC PO ONE (18:36)
[2020-11-13] MEDS: Loratadine 10 MG TABLET PO SCH (20:08)
[2020-11-13] MEDS: CALCIFEDIOL 30 MCG PO SCH (23:32)
[2020-11-14] MEDS: Lactulose Oral Soln 20 GM/30 ML UDC PO SCH ×4 (07:39→23:39)
[2020-11-14] MEDS: Multivit/Ca/Min/Fe/FA 1 TAB TABLET PO SCH (07:40)
[2020-11-14] MEDS: Spironolactone 25 MG TABLET PO SCH (07:41)
[2020-11-14] MEDS: Finasteride 5 MG TABLET PO SCH (07:42)
[2020-11-14] MEDS: Gabapentin 100 MG CAPSULE PO SCH ×3 (07:42→21:56)
[2020-11-14] MEDS: Nicotine 14 MG PATCH.TD24 TD SCH (07:42)
[2020-11-14] MEDS: Furosemide 40 MG TABLET PO SCH (07:42)
[2020-11-14] MEDS: NIFEdipine XL (24 HR) 30 MG TAB.ER.24 PO SCH (07:42)
[2020-11-14] MEDS: Ipratropium/Albuterol Neb 3 ML IH PRN (10:00)
[2020-11-14] MEDS: Budesonide/Formoterol 160/4.5 1 PUFF INH IH SCH ×2 (10:00→21:36)
[2020-11-14] MEDS: Tiotropium 10 INH DOSE IH SCH (10:00)
[2020-11-14] MEDS: Insulin LISPRO 300 UNITS/3 ML VIAL SUBQ SCH ×4 (10:34→22:00)
[2020-11-14] MEDS: Ammonium Lactate 30 APPL/225 GM BOTTLE TP SCH ×2 (12:01→21:59)
[2020-11-14] MEDS: Loratadine 10 MG TABLET PO SCH (21:55)
[2020-11-14] MEDS: CALCIFEDIOL 30 MCG PO SCH (21:57)
[2020-11-15] MEDS: Ipratropium/Albuterol Neb 3 ML IH PRN ×2 (04:12→09:12)
[2020-11-15] MEDS: Lactulose Oral Soln 20 GM/30 ML UDC PO SCH ×3 (06:11→15:55)
[2020-11-15 08:45] LABS: Basophils % 0.4 %; Eosinophils # 0.2 K/mcL (0.0-0.6); Eosinophils % 3.4 %; Hematocrit 24.1 % (37.5-50.1); Hemoglobin 7.5 g/dL (12.9-16.9); Immature Granulocytes % 0.2 % (0-4); Lymphocytes # 1.3 K/mcL (0.6-4.6); Lymphocytes % 28.1 %; Mean Corpuscular HGB Conc 31.1 g/dL (31.6-35.5); Mean Corpuscular Hemoglobin 31.3 pg (28.0-33.3); Mean Corpuscular Volume 100.4 fL (83.0-100.0); Mean Platelet Volume 11.9 fL (9.4-12.4); Monocytes # 0.4 K/mcL (0.0-1.3); Monocytes % 9.2 %; Neutrophils # 2.8 K/mcL (1.6-8.9); Red Cell Distribution Width 19.9 % (11.5-14.5); Segmented Neutrophils % 58.7 %; White Blood Count 4.7 K/mcL (4.3-11.1)
[2020-11-15 08:51] LABS: Platelet Count 51 K/mcL (140-400)
[2020-11-15 09:08] LABS: Calcium 9.2 mg/dL (8.6-10.3); Potassium 4.7 mEq/L (3.5-5.1)
[2020-11-15] MEDS: Tiotropium 10 INH DOSE IH SCH (09:12)
[2020-11-15] MEDS: Budesonide/Formoterol 160/4.5 1 PUFF INH IH SCH ×2 (09:12→21:24)
[2020-11-15] MEDS ORDERED: Lactulose Oral Soln 20 GM/30 ML UDC PO ONE (10:13)
[2020-11-15] MEDS: Insulin LISPRO 300 UNITS/3 ML VIAL SUBQ SCH ×4 (10:44→19:41)
[2020-11-15] MEDS: Spironolactone 25 MG TABLET PO SCH (10:44)
[2020-11-15] MEDS: Ammonium Lactate 30 APPL/225 GM BOTTLE TP SCH ×2 (10:44→20:42)
[2020-11-15] MEDS: Gabapentin 100 MG CAPSULE PO SCH ×3 (10:45→20:41)
[2020-11-15] MEDS: Furosemide 40 MG TABLET PO SCH (10:45)
[2020-11-15] MEDS: Nicotine 14 MG PATCH.TD24 TD SCH (10:46)
[2020-11-15] MEDS: NIFEdipine XL (24 HR) 30 MG TAB.ER.24 PO SCH (10:47)
[2020-11-15] MEDS: Finasteride 5 MG TABLET PO SCH (10:47)
[2020-11-15] MEDS: Multivit/Ca/Min/Fe/FA 1 TAB TABLET PO SCH (10:47)
[2020-11-15] MEDS ORDERED: Lactulose 200 GM, Sodium Chloride IRRigation 700 ML RC ONE (10:52)
[2020-11-15] MEDS ORDERED: Furosemide 20 MG/2 ML VIAL IVP ONE (10:53)
[2020-11-15] MEDS: Ipratropium/Albuterol Neb 3 ML IH SCH ×2 (18:04→21:24)
[2020-11-15] MEDS: cefTRIAXone 2,000 MG in 0.9 % Sodium Chloride Mini Bag 100 ML IVPB SCH (18:25)
[2020-11-15] MEDS: Loratadine 10 MG TABLET PO SCH (20:41)
[2020-11-15] MEDS: CALCIFEDIOL 30 MCG PO SCH (20:41)
[2020-11-16] MEDS: Lactulose Oral Soln 20 GM/30 ML UDC PO SCH ×5 (00:30→23:14)
[2020-11-16] MEDS: Ipratropium/Albuterol Neb 3 ML IH SCH ×4 (05:19→21:51)
[2020-11-16 07:04] LABS: Basophils % 0.6 %; Eosinophils # 0.2 K/mcL (0.0-0.6); Hematocrit 25.6 % (37.5-50.1); Hemoglobin 7.7 g/dL (12.9-16.9); Immature Granulocytes % 0.2 % (0-4); Lymphocytes # 1.4 K/mcL (0.6-4.6); Lymphocytes % 26.4 %; Mean Corpuscular HGB Conc 30.1 g/dL (31.6-35.5); Mean Corpuscular Volume 103.2 fL (83.0-100.0); Mean Platelet Volume 12.7 fL (9.4-12.4); Monocytes # 0.6 K/mcL (0.0-1.3); Monocytes % 10.7 %; Neutrophils # 3.1 K/mcL (1.6-8.9); Red Blood Count 2.48 M/mcL (4.19-5.50); Red Cell Distribution Width 20.1 % (11.5-14.5); Segmented Neutrophils % 58.1 %; White Blood Count 5.3 K/mcL (4.3-11.1)
[2020-11-16 07:14] LABS: Platelet Count 49 K/mcL (140-400)
[2020-11-16 07:24] LABS: Albumin 3.3 g/dL (3.5-5.7); Albumin/Globulin Ratio 0.9 (1.1-2.2); Bilirubin,Total 1.4 mg/dL (0.3-1.0); Calcium 9.3 mg/dL (8.6-10.3); Globulin 3.5 g/dL (2.4-3.5); Potassium 4.2 mEq/L (3.5-5.1); Total Protein 6.8 g/dL (6.4-8.9)
[2020-11-16] MEDS: Gabapentin 100 MG CAPSULE PO SCH ×3 (09:22→23:14)
[2020-11-16] MEDS: Spironolactone 25 MG TABLET PO SCH (09:22)
[2020-11-16] MEDS: Multivit/Ca/Min/Fe/FA 1 TAB TABLET PO SCH (09:22)
[2020-11-16] MEDS: NIFEdipine XL (24 HR) 30 MG TAB.ER.24 PO SCH (09:22)
[2020-11-16] MEDS: Finasteride 5 MG TABLET PO SCH (09:22)
[2020-11-16] MEDS: Nicotine 14 MG PATCH.TD24 TD SCH (09:22)
[2020-11-16] MEDS: Furosemide 40 MG TABLET PO SCH (09:22)
[2020-11-16] MEDS: cefTRIAXone 2,000 MG in 0.9 % Sodium Chloride Mini Bag 100 ML IVPB SCH (09:23)
[2020-11-16] MEDS: Insulin LISPRO 300 UNITS/3 ML VIAL SUBQ SCH ×4 (09:39→21:36)
[2020-11-16] MEDS: Ammonium Lactate 30 APPL/225 GM BOTTLE TP SCH ×2 (09:40→23:14)
[2020-11-16] MEDS: Dulaglutide [Trulicity] 1.5 MG/0.5 ML Pen.Injctr SQ SCH (09:42)
[2020-11-16] MEDS: Tiotropium 10 INH DOSE IH SCH (11:15)
[2020-11-16] MEDS: Budesonide/Formoterol 160/4.5 1 PUFF INH IH SCH ×2 (11:15→21:50)
[2020-11-16] MEDS ORDERED: Phenylephrine Nasal 0.5% 15 ML BOTTLE NS PRN (17:30)
[2020-11-16] MEDS: Loratadine 10 MG TABLET PO SCH (23:14)
[2020-11-16] MEDS: CALCIFEDIOL 30 MCG PO SCH (23:15)
[2020-11-17] MEDS: Ipratropium/Albuterol Neb 3 ML IH SCH ×4 (04:58→21:04)
[2020-11-17] MEDS: Lactulose Oral Soln 20 GM/30 ML UDC PO SCH ×3 (05:07→21:30)
[2020-11-17 07:24] LABS: Basophils % 0.5 %; Eosinophils # 0.3 K/mcL (0.0-0.6); Eosinophils % 5.7 %; Hematocrit 24.4 % (37.5-50.1); Hemoglobin 7.4 g/dL (12.9-16.9); Immature Granulocytes % 0.2 % (0-4); Lymphocytes % 16.4 %; Mean Corpuscular HGB Conc 30.3 g/dL (31.6-35.5); Mean Corpuscular Hemoglobin 31.4 pg (28.0-33.3); Mean Corpuscular Volume 103.4 fL (83.0-100.0); Mean Platelet Volume 12.5 fL (9.4-12.4); Monocytes # 0.6 K/mcL (0.0-1.3); Monocytes % 10.2 %; Red Blood Count 2.36 M/mcL (4.19-5.50); Red Cell Distribution Width 20.1 % (11.5-14.5)
[2020-11-17 07:38] LABS: Calcium 9.1 mg/dL (8.6-10.3); Potassium 4.1 mEq/L (3.5-5.1)
[2020-11-17 07:58] LABS: Platelet Count 46 K/mcL (140-400)
[2020-11-17] MEDS: Spironolactone 25 MG TABLET PO SCH (09:01)
[2020-11-17] MEDS: NIFEdipine XL (24 HR) 30 MG TAB.ER.24 PO SCH (09:01)
[2020-11-17] MEDS: Multivit/Ca/Min/Fe/FA 1 TAB TABLET PO SCH (09:01)
[2020-11-17] MEDS: Nicotine 14 MG PATCH.TD24 TD SCH (09:01)
[2020-11-17] MEDS: Finasteride 5 MG TABLET PO SCH (09:01)
[2020-11-17] MEDS: Gabapentin 100 MG CAPSULE PO SCH ×3 (09:01→21:30)
[2020-11-17] MEDS: Ammonium Lactate 30 APPL/225 GM BOTTLE TP SCH ×2 (09:02→21:39)
[2020-11-17] MEDS: Furosemide 40 MG TABLET PO SCH (09:02)
[2020-11-17] MEDS: cefTRIAXone 2,000 MG in 0.9 % Sodium Chloride Mini Bag 100 ML IVPB SCH (09:04)
[2020-11-17] MEDS: Insulin LISPRO 300 UNITS/3 ML VIAL SUBQ SCH ×4 (09:05→21:29)
[2020-11-17] MEDS: Tiotropium 10 INH DOSE IH SCH (10:14)
[2020-11-17] MEDS: Budesonide/Formoterol 160/4.5 1 PUFF INH IH SCH ×2 (10:15→21:04)
[2020-11-17] MEDS: CALCIFEDIOL 30 MCG PO SCH (21:29)
[2020-11-17] MEDS: Loratadine 10 MG TABLET PO SCH (21:29)
[2020-11-18] MEDS: Ipratropium/Albuterol Neb 3 ML IH SCH ×4 (04:42→23:33)
[2020-11-18] MEDS: Multivit/Ca/Min/Fe/FA 1 TAB TABLET PO SCH (08:18)
[2020-11-18] MEDS: Insulin LISPRO 300 UNITS/3 ML VIAL SUBQ SCH ×4 (08:18→21:19)
[2020-11-18] MEDS: NIFEdipine XL (24 HR) 30 MG TAB.ER.24 PO SCH (08:19)
[2020-11-18] MEDS: Finasteride 5 MG TABLET PO SCH (08:19)
[2020-11-18] MEDS: Gabapentin 100 MG CAPSULE PO SCH ×3 (08:20→21:18)
[2020-11-18] MEDS: Furosemide 40 MG TABLET PO SCH (08:20)
[2020-11-18] MEDS: Nicotine 14 MG PATCH.TD24 TD SCH (08:21)
[2020-11-18] MEDS: Lactulose Oral Soln 20 GM/30 ML UDC PO SCH ×3 (08:24→21:19)
[2020-11-18] MEDS: Ammonium Lactate 30 APPL/225 GM BOTTLE TP SCH ×2 (11:18→21:20)
[2020-11-18] MEDS: Tiotropium 10 INH DOSE IH SCH (13:23)
[2020-11-18] MEDS: Budesonide/Formoterol 160/4.5 1 PUFF INH IH SCH ×2 (13:23→23:33)
[2020-11-18] MEDS: Loratadine 10 MG TABLET PO SCH (21:18)
[2020-11-18] MEDS: CALCIFEDIOL 30 MCG PO SCH (21:19)
[2020-11-19] MEDS: Ipratropium/Albuterol Neb 3 ML IH SCH ×4 (04:42→22:38)
[2020-11-19] MEDS: Insulin LISPRO 300 UNITS/3 ML VIAL SUBQ SCH ×4 (07:47→21:24)
[2020-11-19] MEDS: Multivit/Ca/Min/Fe/FA 1 TAB TABLET PO SCH (08:58)
[2020-11-19] MEDS: Furosemide 40 MG TABLET PO SCH (08:59)
[2020-11-19] MEDS: Finasteride 5 MG TABLET PO SCH (08:59)
[2020-11-19] MEDS: Gabapentin 100 MG CAPSULE PO SCH ×3 (08:59→21:16)
[2020-11-19] MEDS: Nicotine 14 MG PATCH.TD24 TD SCH (09:00)
[2020-11-19] MEDS: NIFEdipine XL (24 HR) 30 MG TAB.ER.24 PO SCH (09:00)
[2020-11-19] MEDS: Lactulose Oral Soln 20 GM/30 ML UDC PO SCH ×3 (09:00→21:15)
[2020-11-19] MEDS: Ammonium Lactate 30 APPL/225 GM BOTTLE TP SCH ×2 (09:01→21:17)
[2020-11-19] MEDS: Budesonide/Formoterol 160/4.5 1 PUFF INH IH SCH ×2 (09:30→22:37)
[2020-11-19] MEDS: Tiotropium 10 INH DOSE IH SCH (09:31)
[2020-11-19] MEDS: Loratadine 10 MG TABLET PO SCH (21:17)
[2020-11-19] MEDS: CALCIFEDIOL 30 MCG PO SCH (21:19)
[2020-11-20] MEDS: Ipratropium/Albuterol Neb 3 ML IH SCH ×4 (04:01→22:46)
[2020-11-20] MEDS: Budesonide/Formoterol 160/4.5 1 PUFF INH IH SCH ×2 (09:18→22:46)
[2020-11-20] MEDS: Tiotropium 10 INH DOSE IH SCH (09:19)
[2020-11-20] MEDS: Multivit/Ca/Min/Fe/FA 1 TAB TABLET PO SCH (09:28)
[2020-11-20] MEDS: NIFEdipine XL (24 HR) 30 MG TAB.ER.24 PO SCH (09:29)
[2020-11-20] MEDS: Nicotine 14 MG PATCH.TD24 TD SCH (09:30)
[2020-11-20] MEDS: Finasteride 5 MG TABLET PO SCH (09:30)
[2020-11-20] MEDS: Gabapentin 100 MG CAPSULE PO SCH ×3 (09:30→19:45)
[2020-11-20] MEDS: Ammonium Lactate 30 APPL/225 GM BOTTLE TP SCH (09:30)
[2020-11-20] MEDS: Insulin LISPRO 300 UNITS/3 ML VIAL SUBQ SCH ×3 (09:31→16:41)
[2020-11-20] MEDS: Lactulose Oral Soln 20 GM/30 ML UDC PO SCH ×3 (09:35→17:06)
[2020-11-20] MEDS: Furosemide 40 MG TABLET PO SCH (10:30)
[2020-11-20] MEDS: Loratadine 10 MG TABLET PO SCH (19:46)
[2020-11-20] MEDS: CALCIFEDIOL 30 MCG PO SCH (19:47)
[2020-11-21] MEDS: Ammonium Lactate 30 APPL/225 GM BOTTLE TP SCH ×3 (00:01→19:53)
[2020-11-21] MEDS: Lactulose Oral Soln 20 GM/30 ML UDC PO SCH ×5 (00:02→23:22)
[2020-11-21] MEDS: Insulin LISPRO 300 UNITS/3 ML VIAL SUBQ SCH ×5 (00:02→20:26)
[2020-11-21] MEDS: Ipratropium/Albuterol Neb 3 ML IH SCH ×4 (05:00→21:43)
[2020-11-21 08:10] LABS: Basophils # 0.1 K/mcL (0.0-0.2); Basophils % 0.8 %; Eosinophils # 0.4 K/mcL (0.0-0.6); Eosinophils % 7.2 %; Hematocrit 24.5 % (37.5-50.1); Hemoglobin 7.5 g/dL (12.9-16.9); Immature Granulocytes % 0.3 % (0-4); Lymphocytes # 1.4 K/mcL (0.6-4.6); Lymphocytes % 24.2 %; Mean Corpuscular HGB Conc 30.6 g/dL (31.6-35.5); Mean Corpuscular Hemoglobin 31.4 pg (28.0-33.3); Mean Corpuscular Volume 102.5 fL (83.0-100.0); Mean Platelet Volume 12.1 fL (9.4-12.4); Monocytes # 0.6 K/mcL (0.0-1.3); Monocytes % 10.2 %; Neutrophils # 3.4 K/mcL (1.6-8.9); Red Blood Count 2.39 M/mcL (4.19-5.50); Red Cell Distribution Width 19.6 % (11.5-14.5); Segmented Neutrophils % 57.3 %
[2020-11-21 08:11] LABS: Platelet Count 59 K/mcL (140-400)
[2020-11-21 08:26] LABS: Calcium 9.2 mg/dL (8.6-10.3); Potassium 4.3 mEq/L (3.5-5.1)
[2020-11-21 08:27] LABS: Albumin 3.2 g/dL (3.5-5.7); Albumin/Globulin Ratio 0.9 (1.1-2.2); Bilirubin,Direct 0.5 mg/dL (0.0-0.2); Bilirubin,Indirect 1.1 mg/dL (0.0-1.0); Bilirubin,Total 1.6 mg/dL (0.3-1.0); Globulin 3.7 g/dL (2.4-3.5); Total Protein 6.9 g/dL (6.4-8.9)
[2020-11-21] MEDS: Budesonide/Formoterol 160/4.5 1 PUFF INH IH SCH ×2 (09:37→21:43)
[2020-11-21] MEDS: Tiotropium 10 INH DOSE IH SCH (09:37)
[2020-11-21] MEDS: Nicotine 14 MG PATCH.TD24 TD SCH (10:26)
[2020-11-21] MEDS: Finasteride 5 MG TABLET PO SCH (10:29)
[2020-11-21] MEDS: Multivit/Ca/Min/Fe/FA 1 TAB TABLET PO SCH (10:29)
[2020-11-21] MEDS: Gabapentin 100 MG CAPSULE PO SCH ×3 (10:29→19:50)
[2020-11-21] MEDS: Furosemide 40 MG TABLET PO SCH (10:30)
[2020-11-21] MEDS: NIFEdipine XL (24 HR) 30 MG TAB.ER.24 PO SCH (10:30)
[2020-11-21] MEDS: CALCIFEDIOL 30 MCG PO SCH (19:51)
[2020-11-21] MEDS: Loratadine 10 MG TABLET PO SCH (19:52)
[2020-11-22] MEDS: Ipratropium/Albuterol Neb 3 ML IH SCH ×4 (03:33→21:43)
[2020-11-22] MEDS: Lactulose Oral Soln 20 GM/30 ML UDC PO SCH ×3 (04:58→20:49)
[2020-11-22] MEDS: Tiotropium 10 INH DOSE IH SCH (10:16)
[2020-11-22] MEDS: Budesonide/Formoterol 160/4.5 1 PUFF INH IH SCH ×2 (10:17→21:43)
[2020-11-22] MEDS: Ammonium Lactate 30 APPL/225 GM BOTTLE TP SCH ×2 (10:31→20:50)
[2020-11-22] MEDS: Multivit/Ca/Min/Fe/FA 1 TAB TABLET PO SCH (11:04)
[2020-11-22] MEDS: NIFEdipine XL (24 HR) 30 MG TAB.ER.24 PO SCH (11:04)
[2020-11-22] MEDS: Finasteride 5 MG TABLET PO SCH (11:05)
[2020-11-22] MEDS: Furosemide 40 MG TABLET PO SCH (11:06)
[2020-11-22] MEDS: Gabapentin 100 MG CAPSULE PO SCH ×3 (11:06→20:49)
[2020-11-22] MEDS: Nicotine 14 MG PATCH.TD24 TD SCH (11:06)
[2020-11-22] MEDS: Insulin LISPRO 300 UNITS/3 ML VIAL SUBQ SCH ×4 (11:14→20:50)
[2020-11-22] MEDS: CALCIFEDIOL 30 MCG PO SCH (20:49)
[2020-11-22] MEDS: Loratadine 10 MG TABLET PO SCH (20:49)
[2020-11-23] MEDS: Lactulose Oral Soln 20 GM/30 ML UDC PO SCH ×5 (00:06→23:22)
[2020-11-23] MEDS: Ipratropium/Albuterol Neb 3 ML IH SCH ×4 (04:34→21:38)
[2020-11-23] MEDS: Insulin LISPRO 300 UNITS/3 ML VIAL SUBQ SCH ×4 (09:35→20:02)
[2020-11-23] MEDS: Nicotine 14 MG PATCH.TD24 TD SCH (09:42)
[2020-11-23] MEDS: Finasteride 5 MG TABLET PO SCH (09:43)
[2020-11-23] MEDS: Furosemide 40 MG TABLET PO SCH (09:43)
[2020-11-23] MEDS: Multivit/Ca/Min/Fe/FA 1 TAB TABLET PO SCH (09:43)
[2020-11-23] MEDS: NIFEdipine XL (24 HR) 30 MG TAB.ER.24 PO SCH (09:44)
[2020-11-23] MEDS: Ammonium Lactate 30 APPL/225 GM BOTTLE TP SCH ×2 (09:46→20:58)
[2020-11-23] MEDS: Tiotropium 10 INH DOSE IH SCH (09:46)
[2020-11-23] MEDS: Budesonide/Formoterol 160/4.5 1 PUFF INH IH SCH ×2 (09:47→21:38)
[2020-11-23] MEDS: Gabapentin 100 MG CAPSULE PO SCH ×3 (09:53→20:59)
[2020-11-23] MEDS: Dulaglutide [Trulicity] 1.5 MG/0.5 ML Pen.Injctr SQ SCH (09:54)
[2020-11-23] MEDS: Loratadine 10 MG TABLET PO SCH (20:59)
[2020-11-23] MEDS: CALCIFEDIOL 30 MCG PO SCH (20:59)
[2020-11-24] MEDS: Ipratropium/Albuterol Neb 3 ML IH SCH ×2 (04:19→09:52)
[2020-11-24] MEDS: Lactulose Oral Soln 20 GM/30 ML UDC PO SCH (04:50)
[2020-11-24 08:33] VITALS: BP 95/55; PULSE 78; RESP 18; TEMP 97.4; O2SAT 97
[2020-11-24] MEDS: Gabapentin 100 MG CAPSULE PO SCH (09:25)
[2020-11-24] MEDS: Furosemide 40 MG TABLET PO SCH (09:26)
[2020-11-24] MEDS: Finasteride 5 MG TABLET PO SCH (09:26)
[2020-11-24] MEDS: Nicotine 14 MG PATCH.TD24 TD SCH (09:26)
[2020-11-24] MEDS: Multivit/Ca/Min/Fe/FA 1 TAB TABLET PO SCH (09:26)
[2020-11-24] MEDS: NIFEdipine XL (24 HR) 30 MG TAB.ER.24 PO SCH (09:26)
[2020-11-24] MEDS: Tiotropium 10 INH DOSE IH SCH (09:52)
[2020-11-24] MEDS: Budesonide/Formoterol 160/4.5 1 PUFF INH IH SCH (09:52)
== END 2020-11-24 10:00 | disposition home health service (06) | DRG 945 ==
LOC: INPPIK 18:36
PROVIDERS: ADMIT Family Medicine; ATTEND Family Medicine

== ENCOUNTER 2020-12-08 17:40 | Inpatient (IN) ==
[2020-12-10] MEDS: Gabapentin 100 MG CAPSULE PO SCH (21:02)
[2020-12-10] MEDS: Sucralfate 1 GM TABLET PO SCH ×2 (21:02→21:10)
[2020-12-10] MEDS: Loratadine 10 MG TABLET PO SCH (21:02)
[2020-12-10] MEDS: Lactulose Oral Soln 20 GM/30 ML UDC PO SCH (21:08)
[2020-12-10] MEDS: Ergocalciferol (VIT D2) 50,000 UNIT (1.25MG) CAP PO SCH (21:08)
[2020-12-11 08:08] LABS: Basophils % 0.6 %; Eosinophils # 0.3 K/mcL (0.0-0.6); Eosinophils % 6.5 %; Hematocrit 24.3 % (37.5-50.1); Hemoglobin 7.5 g/dL (12.9-16.9); Immature Granulocytes % 0.4 % (0-4); Lymphocytes # 1.3 K/mcL (0.6-4.6); Lymphocytes % 27.6 %; Mean Corpuscular HGB Conc 30.9 g/dL (31.6-35.5); Mean Corpuscular Hemoglobin 32.5 pg (28.0-33.3); Mean Corpuscular Volume 105.2 fL (83.0-100.0); Mean Platelet Volume 12.4 fL (9.4-12.4); Monocytes # 0.5 K/mcL (0.0-1.3); Monocytes % 10.1 %; Neutrophils # 2.6 K/mcL (1.6-8.9); Red Blood Count 2.31 M/mcL (4.19-5.50); Red Cell Distribution Width 19.4 % (11.5-14.5); Segmented Neutrophils % 54.8 %; White Blood Count 4.7 K/mcL (4.3-11.1)
[2020-12-11 08:13] LABS: Alanine Aminotransferase 32 Units/L (7-52); Albumin 3.1 g/dL (3.5-5.7); Albumin/Globulin Ratio 0.9 (1.1-2.2); Alkaline Phosphatase 107 Units/L (34-104); Aspartate Amino Transferase 63 Units/L (13-39); BUN/Creatinine Ratio 12 (6-26); Bilirubin,Total 1.5 mg/dL (0.3-1.0); Blood Urea Nitrogen 17 mg/dL (8-23); Calcium 8.8 mg/dL (8.6-10.3); Carbon Dioxide 20 mEq/L (23-29); Chloride 108 mEq/L (98-107); Globulin 3.6 g/dL (2.4-3.5); Glucose 121 mg/dL (70-105); Osmolality,Calculated 281 (280-300); Potassium 4.3 mEq/L (3.5-5.1); Sodium 134 mEq/L (136-145); Total Protein 6.7 g/dL (6.4-8.9); eGFR For African Americans > 60 (> 60); eGFR For Non-African Americans 51 (> 60)
[2020-12-11 08:14] LABS: Platelet Count 30 K/mcL (140-400)
[2020-12-11] MEDS: Lactulose Oral Soln 20 GM/30 ML UDC PO SCH ×3 (08:30→20:16)
[2020-12-11] MEDS: Finasteride 5 MG TABLET PO SCH (08:30)
[2020-12-11] MEDS: Furosemide 40 MG TABLET PO SCH (08:30)
[2020-12-11] MEDS: CALCIFEDIOL 30 MCG PO SCH (08:31)
[2020-12-11] MEDS: Gabapentin 100 MG CAPSULE PO SCH ×3 (08:31→20:14)
[2020-12-11] MEDS: Sucralfate 1 GM TABLET PO SCH ×4 (08:31→20:15)
[2020-12-11] MEDS: NIFEdipine XL (24 HR) 30 MG TAB.ER.24 PO SCH (08:31)
[2020-12-11] MEDS: Loratadine 10 MG TABLET PO SCH (20:14)
[2020-12-12] MEDS: Finasteride 5 MG TABLET PO SCH (08:20)
[2020-12-12] MEDS: Lactulose Oral Soln 20 GM/30 ML UDC PO SCH ×3 (08:21→19:59)
[2020-12-12] MEDS: Gabapentin 100 MG CAPSULE PO SCH ×3 (08:21→19:59)
[2020-12-12] MEDS: NIFEdipine XL (24 HR) 30 MG TAB.ER.24 PO SCH (08:21)
[2020-12-12] MEDS: Sucralfate 1 GM TABLET PO SCH ×4 (08:21→21:59)
[2020-12-12] MEDS: Furosemide 40 MG TABLET PO SCH (08:21)
[2020-12-12] MEDS: CALCIFEDIOL 30 MCG PO SCH (08:22)
[2020-12-12] MEDS: Loratadine 10 MG TABLET PO SCH (20:00)
[2020-12-13 07:39] LABS: Basophils % 0.9 %; Eosinophils # 0.2 K/mcL (0.0-0.6); Eosinophils % 4.7 %; Hematocrit 22.4 % (37.5-50.1); Hemoglobin 6.9 g/dL (12.9-16.9); Immature Granulocytes % 0.2 % (0-4); Lymphocytes # 1.2 K/mcL (0.6-4.6); Lymphocytes % 26.3 %; Mean Corpuscular HGB Conc 30.8 g/dL (31.6-35.5); Mean Corpuscular Hemoglobin 32.2 pg (28.0-33.3); Mean Corpuscular Volume 104.7 fL (83.0-100.0); Mean Platelet Volume 11.9 fL (9.4-12.4); Monocytes # 0.5 K/mcL (0.0-1.3); Monocytes % 10.1 %; Neutrophils # 2.7 K/mcL (1.6-8.9); Red Blood Count 2.14 M/mcL (4.19-5.50); Red Cell Distribution Width 19.5 % (11.5-14.5); Segmented Neutrophils % 57.8 %; White Blood Count 4.6 K/mcL (4.3-11.1)
[2020-12-13 07:52] LABS: Calcium 8.8 mg/dL (8.6-10.3); Platelet Count 32 K/mcL (140-400); Potassium 4.4 mEq/L (3.5-5.1)
[2020-12-13] MEDS: CALCIFEDIOL 30 MCG PO SCH (10:11)
[2020-12-13] MEDS: NIFEdipine XL (24 HR) 30 MG TAB.ER.24 PO SCH (10:27)
[2020-12-13] MEDS: Furosemide 40 MG TABLET PO SCH (10:27)
[2020-12-13] MEDS: Finasteride 5 MG TABLET PO SCH (10:27)
[2020-12-13] MEDS: Sucralfate 1 GM TABLET PO SCH ×4 (10:27→19:49)
[2020-12-13] MEDS: Lactulose Oral Soln 20 GM/30 ML UDC PO SCH ×3 (10:27→19:44)
[2020-12-13] MEDS: Gabapentin 100 MG CAPSULE PO SCH ×3 (10:27→19:46)
[2020-12-13] MEDS ORDERED: 0.9 % Sodium Chloride 250 ML IVC SCH (10:30)
[2020-12-13 19:27] LABS: Hematocrit 26.4 % (37.5-50.1); Hemoglobin 8.1 g/dL (12.9-16.9)
[2020-12-13] MEDS: Loratadine 10 MG TABLET PO SCH (19:46)
[2020-12-14] MEDS: Lactulose Oral Soln 20 GM/30 ML UDC PO SCH ×3 (07:22→19:55)
[2020-12-14] MEDS: Gabapentin 100 MG CAPSULE PO SCH ×3 (07:24→19:57)
[2020-12-14] MEDS: Furosemide 40 MG TABLET PO SCH (07:24)
[2020-12-14] MEDS: Finasteride 5 MG TABLET PO SCH (07:25)
[2020-12-14] MEDS: NIFEdipine XL (24 HR) 30 MG TAB.ER.24 PO SCH (07:25)
[2020-12-14] MEDS: Sucralfate 1 GM TABLET PO SCH ×4 (07:25→19:56)
[2020-12-14] MEDS: CALCIFEDIOL 30 MCG PO SCH (07:30)
[2020-12-14] MEDS: Ergocalciferol (VIT D2) 50,000 UNIT (1.25MG) CAP PO SCH (07:37)
[2020-12-14] MEDS: Ipratropium/Albuterol Neb 3 ML IH PRN ×2 (10:51→20:42)
[2020-12-14] MEDS: Loratadine 10 MG TABLET PO SCH (19:57)
[2020-12-15] MEDS: Lactulose Oral Soln 20 GM/30 ML UDC PO SCH ×3 (07:28→19:49)
[2020-12-15] MEDS: Sucralfate 1 GM TABLET PO SCH ×4 (07:29→19:49)
[2020-12-15] MEDS: NIFEdipine XL (24 HR) 30 MG TAB.ER.24 PO SCH (07:29)
[2020-12-15] MEDS: Finasteride 5 MG TABLET PO SCH (07:29)
[2020-12-15] MEDS: Gabapentin 100 MG CAPSULE PO SCH ×3 (07:29→19:49)
[2020-12-15] MEDS: Furosemide 40 MG TABLET PO SCH (07:30)
[2020-12-15] MEDS: CALCIFEDIOL 30 MCG PO SCH (07:30)
[2020-12-15 08:49] LABS: Basophils % 0.7 %; Eosinophils # 0.2 K/mcL (0.0-0.6); Eosinophils % 3.2 %; Hematocrit 24.6 % (37.5-50.1); Hemoglobin 7.6 g/dL (12.9-16.9); Immature Granulocytes % 0.2 % (0-4); Lymphocytes # 1.5 K/mcL (0.6-4.6); Mean Corpuscular HGB Conc 30.9 g/dL (31.6-35.5); Mean Corpuscular Hemoglobin 32.1 pg (28.0-33.3); Mean Corpuscular Volume 103.8 fL (83.0-100.0); Mean Platelet Volume 13.2 fL (9.4-12.4); Monocytes # 0.6 K/mcL (0.0-1.3); Monocytes % 11.5 %; Neutrophils # 3.1 K/mcL (1.6-8.9); Red Blood Count 2.37 M/mcL (4.19-5.50); Red Cell Distribution Width 19.5 % (11.5-14.5); Segmented Neutrophils % 57.4 %; White Blood Count 5.4 K/mcL (4.3-11.1)
[2020-12-15 08:50] LABS: Platelet Count 38 K/mcL (140-400)
[2020-12-15 09:11] LABS: Calcium 9.1 mg/dL (8.6-10.3); Potassium 4.7 mEq/L (3.5-5.1)
[2020-12-15] MEDS: Ipratropium/Albuterol Neb 3 ML IH PRN (18:32)
[2020-12-15] MEDS: Loratadine 10 MG TABLET PO SCH (19:49)
[2020-12-16] MEDS: Lactulose Oral Soln 20 GM/30 ML UDC PO SCH ×3 (08:19→19:38)
[2020-12-16] MEDS: Sucralfate 1 GM TABLET PO SCH ×4 (08:20→19:38)
[2020-12-16] MEDS: NIFEdipine XL (24 HR) 30 MG TAB.ER.24 PO SCH (08:20)
[2020-12-16] MEDS: Finasteride 5 MG TABLET PO SCH (08:20)
[2020-12-16] MEDS: Gabapentin 100 MG CAPSULE PO SCH ×3 (08:20→19:38)
[2020-12-16] MEDS: CALCIFEDIOL 30 MCG PO SCH (08:21)
[2020-12-16] MEDS: Ipratropium/Albuterol Neb 3 ML IH PRN (17:41)
[2020-12-16] MEDS: Loratadine 10 MG TABLET PO SCH (19:38)
[2020-12-17] MEDS: Sucralfate 1 GM TABLET PO SCH ×5 (07:46→19:56)
[2020-12-17] MEDS: Lactulose Oral Soln 20 GM/30 ML UDC PO SCH ×3 (07:46→19:57)
[2020-12-17] MEDS: Gabapentin 100 MG CAPSULE PO SCH ×3 (07:47→19:57)
[2020-12-17] MEDS: Finasteride 5 MG TABLET PO SCH (07:47)
[2020-12-17] MEDS: NIFEdipine XL (24 HR) 30 MG TAB.ER.24 PO SCH (07:47)
[2020-12-17] MEDS: CALCIFEDIOL 30 MCG PO SCH (07:47)
[2020-12-17] MEDS: Ergocalciferol (VIT D2) 50,000 UNIT (1.25MG) CAP PO SCH (07:59)
[2020-12-17 09:15] LABS: Basophils # 0.1 K/mcL (0.0-0.2); Basophils % 0.8 %; Eosinophils # 0.2 K/mcL (0.0-0.6); Eosinophils % 2.6 %; Hematocrit 23.9 % (37.5-50.1); Hemoglobin 7.4 g/dL (12.9-16.9); Immature Granulocytes % 0.3 % (0-4); Lymphocytes # 1.2 K/mcL (0.6-4.6); Lymphocytes % 19.1 %; Mean Corpuscular Hemoglobin 31.9 pg (28.0-33.3); Mean Platelet Volume 12.7 fL (9.4-12.4); Monocytes # 0.6 K/mcL (0.0-1.3); Neutrophils # 4.1 K/mcL (1.6-8.9); Red Blood Count 2.32 M/mcL (4.19-5.50); Red Cell Distribution Width 19.5 % (11.5-14.5); Segmented Neutrophils % 67.2 %; White Blood Count 6.1 K/mcL (4.3-11.1)
[2020-12-17 09:28] LABS: Platelet Count 36 K/mcL (140-400)
[2020-12-17 09:37] LABS: Albumin 3.3 g/dL (3.5-5.7); Albumin/Globulin Ratio 0.9 (1.1-2.2); Calcium 9.3 mg/dL (8.6-10.3); Globulin 3.5 g/dL (2.4-3.5); Potassium 4.7 mEq/L (3.5-5.1); Total Protein 6.8 g/dL (6.4-8.9)
[2020-12-17] MEDS: Furosemide 40 MG TABLET PO SCH ×2 (09:47→10:45)
[2020-12-17] MEDS: Ipratropium/Albuterol Neb 3 ML IH PRN (16:13)
[2020-12-17] MEDS: Loratadine 10 MG TABLET PO SCH (19:56)
[2020-12-18] MEDS: Ipratropium/Albuterol Neb 3 ML IH PRN ×2 (02:03→09:21)
[2020-12-18 07:49] LABS: Hematocrit 23.7 % (37.5-50.1); Hemoglobin 7.2 g/dL (12.9-16.9); Mean Corpuscular HGB Conc 30.4 g/dL (31.6-35.5); Mean Corpuscular Volume 105.3 fL (83.0-100.0); Mean Platelet Volume 13.2 fL (9.4-12.4); Red Blood Count 2.25 M/mcL (4.19-5.50); Red Cell Distribution Width 19.6 % (11.5-14.5); White Blood Count 7.4 K/mcL (4.3-11.1)
[2020-12-18 08:05] LABS: Albumin 3.2 g/dL (3.5-5.7); Albumin/Globulin Ratio 0.9 (1.1-2.2); Calcium 9.1 mg/dL (8.6-10.3); Globulin 3.6 g/dL (2.4-3.5); Platelet Count 37 K/mcL (140-400); Potassium 5.1 mEq/L (3.5-5.1); Total Protein 6.8 g/dL (6.4-8.9)
[2020-12-18] MEDS: Gabapentin 100 MG CAPSULE PO SCH ×2 (08:40→15:47)
[2020-12-18] MEDS: Sucralfate 1 GM TABLET PO SCH ×4 (08:41→19:45)
[2020-12-18] MEDS: Finasteride 5 MG TABLET PO SCH (08:41)
[2020-12-18] MEDS: Furosemide 40 MG TABLET PO SCH (08:42)
[2020-12-18] MEDS: NIFEdipine XL (24 HR) 30 MG TAB.ER.24 PO SCH (08:45)
[2020-12-18] MEDS: CALCIFEDIOL 30 MCG PO SCH (08:45)
[2020-12-18] MEDS: Lactulose Oral Soln 20 GM/30 ML UDC PO SCH ×3 (08:45→19:45)
[2020-12-18] MEDS ORDERED: Albumin 25% 25gram/100mL 25 GM/100 ML IV.SOLN IVPB ONE (19:38)
[2020-12-18] MEDS: Loratadine 10 MG TABLET PO SCH (19:45)
[2020-12-19] MEDS: Ipratropium/Albuterol Neb 3 ML IH PRN ×2 (06:46→21:15)
[2020-12-19 07:28] LABS: Calcium 9.3 mg/dL (8.6-10.3); Potassium 5.3 mEq/L (3.5-5.1)
[2020-12-19] MEDS: Lactulose Oral Soln 20 GM/30 ML UDC PO SCH ×3 (08:43→20:56)
[2020-12-19] MEDS: NIFEdipine XL (24 HR) 30 MG TAB.ER.24 PO SCH (08:45)
[2020-12-19] MEDS: CALCIFEDIOL 30 MCG PO SCH (08:45)
[2020-12-19] MEDS: Finasteride 5 MG TABLET PO SCH (08:45)
[2020-12-19] MEDS: Gabapentin 100 MG CAPSULE PO SCH ×2 (08:45→20:56)
[2020-12-19] MEDS: Sucralfate 1 GM TABLET PO SCH ×4 (08:45→22:46)
[2020-12-19] MEDS ORDERED: Albumin 25% 25gram/100mL 25 GM/100 ML IV.SOLN IVPB ONE (10:41)
[2020-12-19 11:09] LABS: Basophils % 0.5 %; Eosinophils # 0.1 K/mcL (0.0-0.6); Eosinophils % 1.2 %; Hematocrit 22.8 % (37.5-50.1); Immature Granulocytes % 0.4 % (0-4); Lymphocytes # 0.9 K/mcL (0.6-4.6); Lymphocytes % 12.4 %; Mean Corpuscular HGB Conc 30.7 g/dL (31.6-35.5); Mean Corpuscular Hemoglobin 32.3 pg (28.0-33.3); Mean Corpuscular Volume 105.1 fL (83.0-100.0); Mean Platelet Volume 13.9 fL (9.4-12.4); Monocytes # 0.9 K/mcL (0.0-1.3); Monocytes % 11.9 %; Neutrophils # 5.5 K/mcL (1.6-8.9); Nucleated Red Blood Cells 0.8 /100 WBC (0); Red Blood Count 2.17 M/mcL (4.19-5.50); Red Cell Distribution Width 19.8 % (11.5-14.5); Segmented Neutrophils % 73.6 %; White Blood Count 7.5 K/mcL (4.3-11.1)
[2020-12-19 11:10] LABS: Platelet Count 34 K/mcL (140-400)
[2020-12-19 11:14] LABS: INR 1.6; Prothrombin Time 18.6 Seconds (9.4-12.1)
[2020-12-19] MEDS: Loratadine 10 MG TABLET PO SCH (20:56)
[2020-12-20 06:37] VITALS: PULSE 92; RESP 22; TEMP 97.6; O2SAT 94
[2020-12-20 06:44] VITALS: BP 108/48
[2020-12-20 07:05] LABS: Basophils % 0.6 %; Eosinophils # 0.2 K/mcL (0.0-0.6); Hematocrit 22.3 % (37.5-50.1); Hemoglobin 6.9 g/dL (12.9-16.9); Immature Granulocytes % 0.5 % (0-4); Lymphocytes # 1.6 K/mcL (0.6-4.6); Lymphocytes % 24.6 %; Mean Corpuscular HGB Conc 30.9 g/dL (31.6-35.5); Mean Corpuscular Hemoglobin 32.4 pg (28.0-33.3); Mean Corpuscular Volume 104.7 fL (83.0-100.0); Mean Platelet Volume 13.8 fL (9.4-12.4); Monocytes # 0.8 K/mcL (0.0-1.3); Monocytes % 12.5 %; Neutrophils # 3.8 K/mcL (1.6-8.9); Red Blood Count 2.13 M/mcL (4.19-5.50); Red Cell Distribution Width 19.8 % (11.5-14.5); Segmented Neutrophils % 58.8 %; White Blood Count 6.4 K/mcL (4.3-11.1)
[2020-12-20 07:17] LABS: Platelet Count 38 K/mcL (140-400)
[2020-12-20 07:30] LABS: INR 1.6; Prothrombin Time 17.7 Seconds (9.4-12.1)
[2020-12-20 07:33] LABS: Albumin 3.3 g/dL (3.5-5.7); Albumin/Globulin Ratio 0.9 (1.1-2.2); Bilirubin,Total 1.8 mg/dL (0.3-1.0); Globulin 3.5 g/dL (2.4-3.5); Potassium 4.9 mEq/L (3.5-5.1); Total Protein 6.8 g/dL (6.4-8.9)
[2020-12-20] MEDS: Finasteride 5 MG TABLET PO SCH (08:22)
[2020-12-20] MEDS: Sucralfate 1 GM TABLET PO SCH (08:22)
[2020-12-20] MEDS: Gabapentin 100 MG CAPSULE PO SCH (08:22)
[2020-12-20] MEDS: NIFEdipine XL (24 HR) 30 MG TAB.ER.24 PO SCH (08:22)
[2020-12-20] MEDS: Lactulose Oral Soln 20 GM/30 ML UDC PO SCH (08:22)
[2020-12-20] MEDS: CALCIFEDIOL 30 MCG PO SCH (08:23)
[2020-12-20] MEDS ORDERED: Albumin 25% 25gram/100mL 25 GM/100 ML IV.SOLN IVPB ONE (08:26)
[2020-12-20] MEDS ORDERED: Furosemide 20 MG TABLET PO SCH (09:00)
== END 2020-12-20 11:20 | disposition short-term general hospital (02) | DRG 432 ==
LOC: INPPIK 12-10 20:51
PROVIDERS: ADMIT Internal Medicine; ATTEND Internal Medicine